=== PATIENT | female | born 1985 | race Hispanic/Latino ===

== ENCOUNTER 2021-09-22 17:12 | Emergency (ER) | payer SELFPAY | END 2021-09-22 19:08 | disposition home or self-care (01) | LOC: ERS 17:12 | DX: R41.82 Altered mental status, unspecified (principal); F19.90 Other psychoactive substance use, unspecified, uncomplicated; F17.210 Nicotine dependence, cigarettes, uncomplicated | CPT/HCPCS: 99284 ==